=== PATIENT | male | born 1935 | race Caucasian/White ===

== ENCOUNTER → 2019-10-19 13:11 | Outpatient (CLI) | payer OTHER, SELFPAY ==
--- NOTE | 2019-10-19 13:44 | BD_ITS ---
STUDY: DUAL ENERGY X-RAY ABSORPTIOMETRY / DXA REASON FOR EXAM: Male, 84 years old. SERGIO OF 3.5 INCHES -- TAKES DIURETIC -- TAKES CALCIUM -- HAS BEEN ON ALENDRONATE x2 YRS -- DOES LITTLE EXERCISE -- FAMILY HX OF OSTEO- MOTHER -- HX OF RIGHT FEMUR FX -- HAS BILATERAL HIP REPLACEMENTS TECHNIQUE: Bone Mineral Density (BMD) measurements of lumbar spine and left forearm were obtained. COMPARISON: None. FINDINGS: Lumbar Spine (L1-L4): g/cm2 (1.837) / T-score (5.0) / Z-score (5.7) Findings are suggestive of normal bone density with a low fracture risk. Left Forearm: g/cm2 (0.971) / T-score (-0.2) / Z-score (1.1) BD/Dexa Bone Density Study IMPRESSION: The patient is considered normal as outlined below according to World [employer] Organization (WHO) criteria with a low fracture risk. Reference Information: The T-score is the number of standard deviations above or below the standard which is normal for young adults at their peak bone mineral density. The World Health Organization (WHO) interprets the T-scores as follows: Above -1 Normal bone density Between -1 and -2.5 Osteopenia Equal to / or below -2.5 Osteoporosis As a practical clinical guideline, osteopenia may be graded as follows: Mild -1 through -1.5 Moderate -1.6 through -2.0 Severe -2.1 through -2.4 The Z-score is the number of standard deviations above or below age-matched controls. A Z-score of less than -1.5 would be considered abnormal. References: 1. NIH Osteoporosis and Related Bone Diseases http://www.osteo.org 2. International Society for Clinical Densitometry http://www.iscd.org 3. National Osteoporosis Foundation http://www.nof.org Electronically Signed: Saravanan Short, at 15:15 EST , Service support ,
== END ==
DX: M85.9 Disorder of bone density and structure, unspecified (principal)
CPT/HCPCS: 77080